=== PATIENT | male | born 1950 | race Hispanic/Latino ===

== ENCOUNTER 2016-06-09 12:01 | Outpatient (CLI) | payer MEDICARE ==
[2016-06-09 12:29] LABS: Calc. Creatinine Clearance 0 mL/min (70-130); Estimated GFR-MDRD Greater than 90
--- NOTE | 2016-06-09 17:58 | CT ---
CT OF THE THORAX WITH CONTRAST: Date: 06/09/16 Comparison made with the 05/25/16 CT of the abdomen and pelvis that in part showed a tiny nodule in the right middle lobe of the lung. Today's exam was done using thin axial slices and coronal reconst ructions after giving IV contrast. Indeed is a small, 3.0 mm, noncalcified nodule in the right middle lobe on slice 37. The vessel seem s to end at about the site of the nodule. I did not see any other nodules elsewhere. The lungs are o therwise clear. There is a bit of lingular scarring and a little bit of scarring in the right lung b ase anteriorly. No acute mediastinal abnormalities were seen. No mass or adenopathy was appreciated. The heart shows no pericardial fluid. No coronal artery calcifications were seen. The aorta was unremarkable in its appearance. IMPRESSION: 3 mm non-calcified nodule, right middle lobe. It is non-specific in appearance. Gener al recommendations would be follow-up in 6 months if there was any concern of cancer in this patient or [address] POS: HOME
== END 2016-06-09 12:02 | disposition home or self-care (01) ==
LOC: BURCT 12:01
PROVIDERS: ATTEND Urology
DX: R91.1 Solitary pulmonary nodule (principal)
CPT/HCPCS: 71260; 82565

== ENCOUNTER 2017-06-08 10:59 | Outpatient (CLI) | payer MEDICARE ==
--- NOTE | 2017-06-08 22:02 | RAD ---
CHEST TWO VIEWS 06/08/17 Comparison is made with a 09/28/15 study. The heart is slightly larger than it was before, but it is still well within normal limits. There is no vascular congestion, edema, or pleural effusion. No pulmonary mass was appreciated. Some of the ralph ng markings in the upper lobes particularly the right are slightly coarser than they were before, but the finding is marginal at best. Mild degenerative changes are seen in the spine. IMPRESSION: No definite acute finding. POS: HOME
== END 2017-06-08 11:00 | disposition home or self-care (01) ==
LOC: BURRAD 10:59
PROVIDERS: ATTEND Physician Assistant
DX: R06.02 Shortness of breath (principal)
CPT/HCPCS: 71046

== ENCOUNTER 2019-11-09 11:32 | Outpatient (CLI) | payer MEDICARE ==
--- NOTE | 2019-11-09 18:34 | RAD ---
LEFT HIP TWO VIEWS: 11/09/19 No fracture or joint space narrowing was seen. No bony destructive lesions were present. The adjacent pubic ring appears intact. No traumatic change, recent or remote was suggested. IMPRESSION: No acute finding. POS: HOME
== END 2019-11-09 11:33 | disposition home or self-care (01) ==
LOC: BURRAD 11:32
PROVIDERS: ATTEND Physician Assistant
DX: M25.552 Pain in left hip (principal)

== ENCOUNTER 2019-11-18 10:51 | Emergency (ER) | payer MEDICARE ==
[2019-11-18 11:25] LABS: Hemoglobin 14.3 g/dL (14.0-18.0); Mean Corpuscular HGB CONC 30.6 g/dL (32.0-36.0); Mean Corpuscular Hemoglobin 29.7 pg (27.0-31.0); Mean Corpuscular Volume 97.3 fL (78.0-98.0); Mean Platelet Volume 8.6 fL (7.4-10.4); Platelet Count 170 thou/uL (130-400); RBC Distribution Width 13.8 % (11.5-14.5); Red Blood Cell (RBC) Count 4.79 mill/uL (4.70-6.10); White Blood Cell (WBC) Count 10.8 thou/uL (4.8-10.8)
--- NOTE | 2019-11-18 11:36 | RAD ---
Exam: Chest one view HISTORY:Shortness of breath. Dyspnea. Comparison: 06/08/2017 FINDINGS: Cardiac silhouette:Enlarged cardiac silhouette due to portable technique. Pacing device: Single lead left-sided defibrillator terminates over the region of the right atrium. Aorta: Unremarkable Pulmonary vessels: Slightly prominent Costophrenic angles: Clear LUNGS: Scattered interstitial opacities. Pneumothorax: None Osseous abnormalities: None IMPRESSION: Possible pulmonary edema/volume overload.
[2019-11-18 11:40] LABS: ALT (SGPT) 77 U/L (8-55); AST (SGOT) 51 U/L (5-34); Alkaline Phosphatase 68 U/L (40-110); Anion Gap 16 mmol/L (10-20); BUN (Urea Nitrogen) 16 mg/dL (8.4-25.7); Bilirubin, Total 1.6 mg/dL (0.2-1.2); Calc. Creatinine Clearance 0 mL/min (70-130); Calcium 8.4 mg/dL (7.8-10.44); Carbon Dioxide 26 mmol/L (23-31); Chloride 100 mmol/L (98-107); Estimated GFR-MDRD 72; Globulin 3.4 g/dL (2.4-3.5); Glucose 157 mg/dL (80-115); Potassium 4.3 mmol/L (3.5-5.1); Protein, Total 7.4 g/dL (5.8-8.1); Sodium 138 mmol/L (136-145)
[2019-11-18 11:43] LABS: Band 27 % (5-11); Eosinophils 4 % (0-10); Lymphocytes 5 % (21-51); MDiff Complete? YES; Monocytes 6 % (0-10); Neutrophil 57 % (42-75)
[2019-11-18] MEDS ORDERED: Aspirin Chewable 81 MG TAB ONE (11:53)
[2019-11-18] MEDS ORDERED: Furosemide 100 MG/10 ML VIAL ONE (11:53)
[2019-11-18] MEDS ORDERED: Nitroglycerin 2% Ointment 1 INCH/1 GM Packet ONE (11:53)
[2019-11-18 13:00] LABS: Bilirubin Negative (Negative); Blood, Urine Trace (Negative); Clarity Clear (Clear); Glucose, Urine (Dipstick) Negative (Negative); Ketone, Urine Negative (Negative); Leukocyte Negative (Negative); Nitrite Negative (Negative); Protein, Urine (Dipstick) Negative (Neg-Trace); Urobilinogen 0.2 mg/dL (Less than 2)
[2019-11-18 13:07] LABS: Bacteria/HPF Rare-Few HPF (None Seen); RBC/HPF 0-3 HPF (0-3); Squamous Epithelial None Seen HPF (0-3); WBC/HPF None Seen HPF (0-3)
== END 2019-11-18 12:42 | disposition short-term general hospital (02) ==
LOC: BURERS 10:51
DX: I11.0 Hypertensive heart disease with heart failure (principal); I50.1 Left ventricular failure, unspecified; R79.1 Abnormal coagulation profile; E11.9 Type 2 diabetes mellitus without complications; Z79.84 Long term (current) use of oral hypoglycemic drugs; Z79.899 Other long term (current) drug therapy
CPT/HCPCS: 71045; 80053; 81003; 81015; 83605; 83880; 84443; 84484; 85025; 85379; 93005; 94760; 96374; J1940

== ENCOUNTER 2021-04-02 15:09 | Emergency (ER) | payer MEDICARE ==
[2021-04-02 16:08] LABS: #Basophils 0.1 thou/uL (0.0-0.2); #Eosinphils 0.1 thou/uL (0.0-0.7); #Lymphocytes 0.9 thou/uL (1.20-3.40); #Monocytes 0.9 thou/uL (0.11-0.59); #Neutrophils 7.8 thou/uL (1.40-6.50); %Basophils 0.6 % (0.0-1.0); %Eosinophils 0.9 % (0.0-10.0); %Lymphocytes 9.5 % (21.0-51.0); %Monocytes 8.9 % (0.0-10.0); %Neutrophils 80.1 % (42.0-75.0); Hemoglobin 13.4 g/dL (14.0-18.0); Mean Corpuscular HGB CONC 32.6 g/dL (32.0-36.0); Mean Corpuscular Hemoglobin 29.5 pg (27.0-31.0); Mean Corpuscular Volume 90.6 fL (78.0-98.0); Mean Platelet Volume 6.7 fL (7.4-10.4); Platelet Count 278 thou/uL (130-400); RBC Distribution Width 13.3 % (11.5-14.5); Red Blood Cell (RBC) Count 4.55 mill/uL (4.70-6.10); White Blood Cell (WBC) Count 9.7 thou/uL (4.8-10.8)
[2021-04-02 16:24] LABS: ALT (SGPT) 62 U/L (8-55); AST (SGOT) 45 U/L (5-34); Albumin 3.5 g/dL (3.4-4.8); Alkaline Phosphatase 71 U/L (40-110); Anion Gap 16 mmol/L (10-20); BUN (Urea Nitrogen) 41 mg/dL (8.4-25.7); Bilirubin, Total 0.9 mg/dL (0.2-1.2); Calc. Creatinine Clearance 0 mL/min (70-130); Calcium 8.8 mg/dL (7.8-10.44); Carbon Dioxide 31 mmol/L (23-31); Chloride 100 mmol/L (98-107); Globulin 3.2 g/dL (2.4-3.5); Glucose 109 mg/dL (80-115); Potassium 4.7 mmol/L (3.5-5.1); Protein, Total 6.7 g/dL (5.8-8.1); Sodium 142 mmol/L (136-145)
[2021-04-02] MEDS ORDERED: Furosemide 40 MG/4 ML VIAL ONE (16:50)
[2021-04-02] MEDS ORDERED: Aspirin Chewable 81 MG TAB ONE (16:50)
[2021-04-02] MEDS ORDERED: Nitroglycerin 2% Ointment 1 INCH/1 GM Packet ONE (16:50)
[2021-04-02 18:56] LABS: Magnesium 2.4 mg/dL (1.6-2.6)
[2021-04-02 19:47] LABS: SARS-CoV-2 NAA Rapid Test Not Detected (NotDetected)
== END 2021-04-02 19:50 | disposition short-term general hospital (02) ==
LOC: BURERS 15:09
DX: I11.0 Hypertensive heart disease with heart failure (principal); I50.9 Heart failure, unspecified; Z20.822 Contact with and (suspected) exposure to COVID-19; E11.9 Type 2 diabetes mellitus without complications; Z79.01 Long term (current) use of anticoagulants
CPT/HCPCS: 71045; 80053; 83735; 83880; 84484; 85025; 93005; U0002; 96374; J1940

== ENCOUNTER 2021-05-29 11:47 | Emergency (ER) | payer MEDICARE ==
[2021-05-29] MEDS ORDERED: Boostrix 0.5 ML (Tdap) VIAL IM ONE (11:48)
[2021-05-29] MEDS ORDERED: Lidocaine 1% PF 5 ML VIAL ONE (12:07)
[2021-05-29] MEDS ORDERED: TETANUS, DIPHTHERIA TOX,ADULT (TDVAX) 0.5 ML VIAL IM ONE (12:43)
== END 2021-05-29 13:10 | disposition home or self-care (01) ==
LOC: BURERS 11:47
DX: S61.411A Laceration without foreign body of right hand, initial encounter (principal); I10 Essential (primary) hypertension; E11.9 Type 2 diabetes mellitus without complications; W10.9XXA Fall (on) (from) unspecified stairs and steps, initial encounter; Z23 Encounter for immunization; Z95.0 Presence of cardiac pacemaker
CPT/HCPCS: 12002; 90471; 90714; 90715